=== PATIENT | female | born 1950 | race Caucasian/White ===

== ENCOUNTER 2021-07-06 11:27 | Emergency (ER) | payer MEDICARE, OTHER ==
[2021-07-06 13:24] LABS: BASOPHIL 0.7 % (0-2); EOSINOPHIL 1.3 % (0-7); HCT 42.3 % (37.0-47.0); HGB 14.1 g/dl (12.5-16.0); MCH 32.3 pg (25.0-31.0); MCHC 33.3 g/dL (32.0-36.0); MONOCYTE 6.4 % (0-12); MPV 10.6 fL (6.0-9.5); NEUTROPHIL 78.9 % (41-80); NRBC 0; PLT 284 K/uL (150-400); RBC 4.36 M/uL (4.20-5.40); RDW 12.9 % (11.5-14.0); WBC 7.6 K/uL (4.0-10.5)
[2021-07-06 13:34] LABS: BUN/CREAT RATIO (CALC) 13.9 RATIO; CREATININE 0.79 mg/dL (0.51-0.95); POTASSIUM 3.8 mmol/L (3.5-5.1)
[2021-07-06] MEDS ORDERED: ONDANSETRON ODT4 MG PO (16:06)
[2021-07-06] MEDS ORDERED: ANTIVERT25 MG PO (16:06)
== END 2021-07-06 16:23 | disposition home or self-care (01) ==
LOC: FER 11:27
PROVIDERS: Nurse Practitioner Family
DX: H81.12 Benign paroxysmal vertigo, left ear (principal); I10 Essential (primary) hypertension; Z88.2 Allergy status to sulfonamides
CPT/HCPCS: 36415; 70450; 80048; 85025; J2405; J7030